=== PATIENT | male | born 1995 | race Caucasian/White ===

== ENCOUNTER 2021-01-17 22:50 | Inpatient (IN) ==
[2021-01-18 00:15] LABS: ABS Basophils 0.1 10^3/ul (0-0.2); ABS Eosinophils 0.2 10^3/ul (0-0.6); ABS Lymphocytes 1.6 10^3/ul (1.0-4.8); ABS Monocytes 0.9 10^3/ul (0-0.8); ABS Neutrophils 8.9 10^3/ul (1.5-7.7); Eosinophil % 1.4 %; Hematocrit 42 % (42-52); Hemoglobin 14.8 g/dL (14.0-18.0); Lymphocyte % 13.6 %; Mean Corpuscular HGB Conc 35 g/dL (31-36); Mean Corpuscular Hemoglobin 31 pg (27-31); Mean Corpuscular Volume 89 fL (80-94); Platelet Count 321 10^3/uL (150-450); Red Blood Count 4.79 10^6 /uL (4.18-5.48); Red Cell Distribution Width 13 % (10-15); White Blood Count 11.6 10^3/uL (3.5-10.8)
[2021-01-18 00:34] LABS: ALT 14 U/L (7-52); AST 20 U/L (13-39); Albumin 4.7 g/dL (3.2-5.2); Alkaline Phosphatase 63 U/L (34-104); Anion Gap 7 mmol/L (2-11); Blood Urea Nitrogen 14 mg/dL (6-24); CO2 Carbon Dioxide 27 mmol/L (22-32); Calcium 9.8 mg/dL (8.6-10.3); Chloride 106 mmol/L (101-111); EGFR Non-African American 85.1 (>60); Globulin 2.4 g/dL (2-4); Glucose 90 mg/dL (70-100); Potassium 3.8 mmol/L (3.5-5.0); Sodium 140 mmol/L (135-145); Total Protein 7.1 g/dL (6.4-8.9)
[2021-01-18 00:35] LABS: Alcohol, S < 10 mg/dL (<10); Salicylate < 2.50 mg/dL (<30)
[2021-01-18 00:50] LABS: TSH Ultra Thyroid Stim Horm 2.85 mcIU/mL (0.34-5.60)
[2021-01-18 00:54] LABS: Acetaminophen < 15 mcg/mL
[2021-01-18] MEDS ORDERED: Al Hydrox/Mg Hydrox/Simet LIQ 30 ML UDC PO PRN (08:36)
[2021-01-18 08:47] LABS: Urine Appearance Cloudy; Urine Bacteria Absent (Absent); Urine Bilirubin Negative (Negative); Urine Blood Negative (Negative); Urine Color Yellow; Urine Glucose Negative (Negative); Urine Ketones 1+ (Negative); Urine Nitrite Negative (Negative); Urine Protein 1+(30 mg/dL) (Negative); Urine Red Blood Cell Absent (Absent); Urine Specific Gravity 1.025 (1.002-1.030); Urine Squamous Epithelial Cell Present (Absent); Urine Urobilinogen Negative (Negative); Urine White Blood Cell Trace(0-5/hpf) (Absent)
[2021-01-18 09:01] LABS: Urine Benzodiazepine Screen None Detected (None Detect); Urine Cannabinoids Screen None Detected (None Detect); Urine Opiates Screen None Detected (None Detect)
[2021-01-18] MEDS: Nicotine PATCH 21 MG/24 HR PATCH TRANSDERM SCH (16:27)
[2021-01-18] MEDS: Vitamin THERAPEUTIC TAB PO SCH (16:27)
[2021-01-19] MEDS: Nicotine PATCH 21 MG/24 HR PATCH TRANSDERM SCH ×2 (07:40→13:31)
[2021-01-19] MEDS: Vitamin THERAPEUTIC TAB PO SCH (07:40)
[2021-01-19 08:50] LABS: HDL Cholesterol 48.3 mg/dL
[2021-01-19] MEDS: Nicotine GUM 4MG FRUIT FLAVOR PO PRN (13:32)
[2021-01-20] MEDS: Nicotine PATCH 21 MG/24 HR PATCH TRANSDERM SCH (08:00)
[2021-01-20] MEDS: Vitamin THERAPEUTIC TAB PO SCH (08:01)
[2021-01-20] MEDS: Nicotine GUM 4MG FRUIT FLAVOR PO PRN ×2 (13:24→19:33)
[2021-01-21 08:36] VITALS: BP 126/75
[2021-01-21] MEDS: Nicotine PATCH 21 MG/24 HR PATCH TRANSDERM SCH (08:37)
[2021-01-21] MEDS: Vitamin THERAPEUTIC TAB PO SCH (08:37)
[2021-01-21] MEDS: Nicotine GUM 4MG FRUIT FLAVOR PO PRN ×2 (08:38→13:24)
== END 2021-01-21 15:45 | disposition home or self-care (01) ==
LOC: ED 22:50 → BSU 01-18 12:43
PROVIDERS: ADMIT Psychiatry & Neurology Psychiatry; ATTEND Psychiatry & Neurology Psychiatry

== ENCOUNTER 2022-02-19 17:06 | Inpatient (IN) ==
[2022-02-19 18:46] LABS: Hematocrit 42 % (42-52); Hemoglobin 14.2 g/dL (14.0-18.0); Mean Corpuscular HGB Conc 34 g/dL (31-36); Mean Corpuscular Hemoglobin 30 pg (27-31); Mean Corpuscular Volume 89 fL (80-94); Platelet Count 291 10^3/uL (150-450); Red Blood Count 4.73 10^6 /uL (4.18-5.48); Red Cell Distribution Width 14 % (10-15); White Blood Count 17.4 10^3/uL (3.5-10.8)
[2022-02-19 19:43] LABS: ABS Basophils 0.1 10^3/ul (0-0.2); ABS Lymphocytes 1.2 10^3/ul (1.0-4.8); ABS Monocytes 1.6 10^3/ul (0-0.8); ABS Neutrophils 14.5 10^3/ul (1.5-7.7); Eosinophil % 0.3 %; Lymphocyte % 6.8 %
[2022-02-19 20:09] LABS: ALT 15 U/L (7-52); AST 26 U/L (13-39); Acetaminophen < 15 mcg/mL; Albumin/Globulin Ratio 2.3 (1-3); Alcohol, S < 13 mg/dL (<13); Alkaline Phosphatase 64 U/L (35-149); Blood Urea Nitrogen 17 mg/dL (6-24); CO2 Carbon Dioxide 28 mmol/L (22-32); Calcium 10.3 mg/dL (8.6-10.3); Chloride 111 mmol/L (101-111); Creatine Kinase 448 U/L (10-223); Globulin 2.2 g/dL (2-4); Glucose 99 mg/dL (70-100); Potassium 4.7 mmol/L (3.5-5.0); Salicylate < 2.50 mg/dL (<30); Total Protein 7.2 g/dL (6.4-8.9); eGFR CKD-EPI 65.4 (>60)
[2022-02-19 20:13] LABS: Anion Gap 7 mmol/L (2-11); Sodium 146 mmol/L (135-145)
[2022-02-19 20:14] LABS: High Sensitivity Troponin 1 Hr 15 pg/mL (<20)
[2022-02-19 20:17] LABS: TSH Ultra Thyroid Stim Horm 2.28 mcIU/mL (0.34-5.60)
[2022-02-20 00:23] LABS: Urine Appearance Cloudy; Urine Bilirubin Negative (Negative); Urine Blood Negative (Negative); Urine Color Yellow; Urine Glucose Negative (Negative); Urine Ketones Negative (Negative); Urine Nitrite Negative (Negative); Urine Protein Negative (Negative); Urine Specific Gravity 1.015 (1.002-1.030); Urine Urobilinogen Negative (Negative)
[2022-02-20 00:39] LABS: Urine Benzodiazepine Screen None Detected (None Detect); Urine Cannabinoids Screen None Detected (None Detect); Urine Opiates Screen None Detected (None Detect)
[2022-02-20] MEDS ORDERED: Al Hydrox/Mg Hydrox/Simet LIQ 30 ML UDC PO PRN (09:43)
[2022-02-21 08:21] LABS: HDL Cholesterol 51.6 mg/dL
[2022-02-25] MEDS: Nicotine PATCH 21 MG/24 HR PATCH TRANSDERM SCH (07:45)
[2022-02-25] MEDS: Nicotine GUM 2MG FRUIT FLAVOR PO PRN ×2 (13:53→18:03)
[2022-02-26] MEDS: Nicotine PATCH 21 MG/24 HR PATCH TRANSDERM SCH (07:29)
[2022-02-26 08:44] VITALS: BP 114/79
== END 2022-02-26 14:15 | DRG 776 ==
LOC: ED 17:06 → EDHOLD 02-20 09:43 → BSU 02-20 11:10
PROVIDERS: ADMIT Psychiatry & Neurology Psychiatry; ATTEND Psychiatry & Neurology Psychiatry